=== PATIENT | male | born 1990 | race African-American/Black ===

== ENCOUNTER → 2019-10-21 | Emergency (ER) | payer MEDICAID ==
[~2019-10-21] VITALS: Ht 167.6 cm; Wt 136.1 kg
[~2019-10-21] MED LIST: COLCHICINE 0.6 MG CAP PO ONE; predniSONE 20 MG TAB PO ONE
[2019-10-21 08:37] LABS: Basophils # (auto) 0 10 ^3/uL (0-0.2); Eosinophils # (auto) 0.1 10 ^3/uL (0-0.8); Monocytes % (auto) 6.2 % (0.0-12.0); Platelet Count (auto) 219 10^3/uL (140-450)
[2019-10-21 08:52] LABS: Basophils % (auto) 0.4 % (0.0-2.0); Eosinophils % (auto) 1.3 % (0.0-7.0); Hematocrit 48.8 % (41.0-53.0); Hemoglobin 16.3 g/dL (13.5-17.5); Lymphocytes # (auto) 1.1 10 ^3/uL (0.4-5.4); Lymphocytes % (auto) 11.9 % (10.0-50.0); Mean Corpuscular Hemoglobin 28.1 pg (28.0-32.0); Mean Corpuscular Hgb Conc. 33.3 g/dL (32.0-36.0); Mean Corpuscular Volume 84.4 fL (80.0-100.0); Monocytes # (auto) 0.6 10 ^3/uL (0-1.3); Neutrophils # (auto) 7.4 10 ^3/uL (1.6-8.6); Neutrophils % (auto) 80.2 % (37.0-80.0); Nucleated Red Blood Cells % 0.1 %; Red Blood Cells 5.79 10^6/uL (4.5-5.90); Red Cell Distribution Width 14.3 % (11.8-14.3); White Blood Cell 9.2 10^3/uL (4.4-10.8)
[2019-10-21 08:55] LABS: Albumin 3.9 g/dL (3.4-5.0); Calcium 8.8 mg/dL (8.5-10.1); Magnesium 2.5 mg/dL (1.6-2.6)
[2019-10-21 08:58] LABS: BUN/Creatinine Ratio 12.1; Bilirubin, Total 0.5 mg/dL (0.2-1.0); Total Protein 8.7 g/dL (6.4-8.2); Uric Acid 7.6 mg/dL (3.5-7.2)
[2019-10-21 10:00] VITALS: BP 121/73
== END | disposition home or self-care (01) ==
LOC: ER 05:16
DX: M10.9 Gout, unspecified (principal); I10 Essential (primary) hypertension
CPT/HCPCS: 36415; 73610; 80053; 83735; 83880; 84550; 85025; 99284; J7512